=== PATIENT | female | born 1990 | race Caucasian/White ===

== ENCOUNTER 2018-10-21 09:41 | Inpatient (IN) | payer MEDICAID ==
[~2018-10-21] VITALS: Ht 157.5 cm; Wt 63.0 kg
[2018-10-21 11:32] LABS: AMPHETAMINE SCREEN, URINE Negative (Negative); BARBITURATE SCREEN, URINE Negative (Negative); BENZODIAZEPINE SCREEN, URINE Negative (Negative); CANNABINOID SCREEN, URINE Negative (Negative); COCAINE SCREEN, URINE Negative (Negative); METHADONE SCREEN, URINE Negative (Negative); OPIATE SCREEN, URINE Negative (Negative)
[2018-10-21] MEDS ORDERED: LACTATED RINGERS 1,000 ML IV SCH ×2 (11:32→13:25)
[2018-10-21] MEDS ORDERED: OXYTOCIN 30U/ 0.9% NaCL 500ML 500 ML IV ONE (11:32)
[2018-10-21] MEDS ORDERED: FENTANYL PF 100 MCG/2ML IVPush PRN (12:00)
[2018-10-21] MEDS ORDERED: PENICILLIN GK 5,000,000 UNITS in DEXTROSE 5% 100 ML IVPB ONE (12:00)
[2018-10-21] MEDS ORDERED: ONDANSETRON 2MG/ML, 2ML IVPush PRN (12:00)
[2018-10-21] MEDS ORDERED: PLEASE ENTER HEIGHT AND WEIGHT MC SCH (12:00)
[2018-10-21 12:08] LABS: BASOPHILS # (AUTO) 0.03 x10^3/uL (0-0.1); BASOPHILS % (AUTO) 0 % (0-1); EOSINOPHILS # (AUTO) 0.05 x10^3/uL (0-0.4); EOSINOPHILS % (AUTO) 0 % (1-7); LYMPHOCYTES # (AUTO) 3.22 x10^3/uL (1-3.4); LYMPHOCYTES % (AUTO) 27 % (22-44); MD NO; MEAN CORPUSCULAR HEMOGLOBIN 30.5 pg (27.0-34.8); MEAN CORPUSCULAR HGB CONC 33.2 g/dL (32.4-35.8); MEAN PLATELET VOLUME 8.1 fL (7.4-10.4); MONOCYTES # (AUTO) 0.39 x10^3/uL (0.2-0.8); MONOCYTES % (AUTO) 3 % (2-9); NEUTROPHILS # (AUTO) 8.13 x10^3/uL (1.8-6.8); NEUTROPHILS % (AUTO) 69 % (42-75); PLATELET COUNT 267 x10^3/uL (130-400); RED BLOOD COUNT 4.23 x10^6/uL (3.82-5.3); RED CELL DISTRIBUTION WIDTH 15.6 % (9.6-15.2)
[2018-10-21] MEDS ORDERED: FENTANYL PF 100 MCG/2ML ONE (12:13)
[2018-10-21] MEDS ORDERED: FENTANYL/BUPIV./NS/PF 250 ML EPIDCONT SCH ×2 (12:31→13:25)
[2018-10-21] MEDS ORDERED: PREN1TAB60 PO (12:43)
[2018-10-21] MEDS ORDERED: FENTANYL PF 500 MCG, BUPIVACAINE/PF 0.5%, 30ML 62.5 ML in SODIUM CHLORIDE 0.9% 177.5 ML EPIDCONT SCH (13:00)
[2018-10-21] MEDS ORDERED: BUPIVACAINE 0.25% ONE (13:03)
[2018-10-21] MEDS ORDERED: LACTATED RINGERS 1,000 ML IVBOLUS PRN (13:30)
[2018-10-21] MEDS ORDERED: ONDANSETRON 2MG/ML, 2ML ONE (13:32)
[2018-10-21] MEDS ORDERED: NEWBORN KIT ONE (14:39)
[2018-10-21] MEDS ORDERED: PENICILLIN GK 2,500,000 UNITS in DEXTROSE 5% 100 ML IVPB SCH (16:00)
[2018-10-21] MEDS ORDERED: OXYTOCIN 30U/ 0.9% NaCL 500ML 500 ML ONE (16:02)
[2018-10-21] MEDS ORDERED: LIDOCAINE 1%, 20ML ONE (16:04)
[2018-10-21] MEDS ORDERED: MISOPROSTOL 200 MCG TABLET ONE ×3 (16:04→16:05)
[2018-10-21] MEDS: OXYTOCIN 30U/ 0.9% NaCL 500ML 500 ML IV SCH (18:41)
[2018-10-21] MEDS ORDERED: BISACODYL 10 MG SUPP PR PRN (19:00)
[2018-10-21] MEDS ORDERED: ACETAMINOPHEN 325 MG TABLET PO PRN (19:00)
[2018-10-21] MEDS ORDERED: MISOPROSTOL 200 MCG TABLET PO PRN (19:00)
[2018-10-21] MEDS ORDERED: DOCUSATE 100 MG CAPSULE PO PRN (19:00)
[2018-10-21] MEDS ORDERED: IBUPROFEN 800 MG TABLET PO PRN (19:00)
[2018-10-21] MEDS ORDERED: ONDANSETRON 2MG/ML, 2ML IV PRN (19:00)
[2018-10-21] MEDS ORDERED: KETOROLAC 30 MG/1 ML IVPush PRN (19:30)
[2018-10-21] MEDS ORDERED: KETOROLAC 30 MG/1 ML ONE (19:31)
[2018-10-22 00:24] VITALS: BP 103/61
[2018-10-22 04:20] VITALS: BP 110/63
[2018-10-22] MEDS: OXYTOCIN 30U/ 0.9% NaCL 500ML 500 ML IV SCH ×2 (04:41→14:41)
[2018-10-22 06:37] LABS: BASOPHILS # (AUTO) 0.04 x10^3/uL (0-0.1); BASOPHILS % (AUTO) 0 % (0-1); EOSINOPHILS # (AUTO) 0.06 x10^3/uL (0-0.4); EOSINOPHILS % (AUTO) 0 % (1-7); LYMPHOCYTES # (AUTO) 3.33 x10^3/uL (1-3.4); LYMPHOCYTES % (AUTO) 24 % (22-44); MD NO; MEAN CORPUSCULAR HEMOGLOBIN 30.7 pg (27.0-34.8); MEAN CORPUSCULAR HGB CONC 33.6 g/dL (32.4-35.8); MEAN CORPUSCULAR VOLUME 91.4 fL (80-100); MEAN PLATELET VOLUME 8.1 fL (7.4-10.4); MONOCYTES % (AUTO) 5 % (2-9); NEUTROPHILS # (AUTO) 9.81 x10^3/uL (1.8-6.8); NEUTROPHILS % (AUTO) 70 % (42-75); PLATELET COUNT 247 x10^3/uL (130-400); RED CELL DISTRIBUTION WIDTH 15.1 % (9.6-15.2)
[2018-10-22 08:20] VITALS: BP 107/65
[2018-10-22] MEDS ORDERED: PRENATAL VIT/IRON/FA 1 EACH TABLET PO SCH (09:00)
[2018-10-22 12:30] VITALS: BP 108/72
[2018-10-22] MEDS ORDERED: DIPH,PERTUSS(ACELL),TET VAC/PF NC IM-VACC ONE ×2 (16:49→17:00)
== END 2018-10-22 17:07 | disposition home or self-care (01) | DRG 806 ==
LOC: LDOP 09:41 → LDIP 11:42 → 2NE 20:24 → 2NW 20:52
PROVIDERS: ADMIT Obstetrics & Gynecology; ATTEND Obstetrics & Gynecology
PROC: 10E0XZZ Delivery of Products of Conception, External Approach (ICD-10-PCS; principal; 2018-10-21)
PROC: 3E0R3BZ Introduction of Anesthetic Agent into Spinal Canal, Percutaneous Approach (ICD-10-PCS; 2018-10-21)
PROC: 00HU33Z Insertion of Infusion Device into Spinal Canal, Percutaneous Approach (ICD-10-PCS; 2018-10-21)
DX: O24.429 Gestational diabetes mellitus in childbirth, unspecified control (principal); O98.42 Viral hepatitis complicating childbirth; Z37.0 Single live birth; O99.324 Drug use complicating childbirth; B19.20 Unspecified viral hepatitis C without hepatic coma; Z3A.37 37 weeks gestation of pregnancy; F11.10 Opioid abuse, uncomplicated; O99.824 Streptococcus B carrier state complicating childbirth
CPT/HCPCS: 36415; 80307; 82803; 82962; 85025; 86850; 86900; 88307; 89060; 90715; G0378; J1885; J2405; J2540; J3010; J3490; J2590; J7050; J7120; Q0114

== ENCOUNTER 2019-01-20 17:50 | Emergency (ER) | payer MEDICAID ==
[~2019-01-20] VITALS: Ht 160 cm; Wt 55.4 kg
[~2019-01-20 17:50] MED LIST: PREN1TAB60 PO
[2019-01-20] MEDS ORDERED: LIDOCAINE-MPF 1%, 5ML INFIL ONE (18:30)
[2019-01-20] MEDS ORDERED: LIDOCAINE-MPF 1%, 5ML ONE (18:39)
--- NOTE | 2019-01-20 18:44 | NUR ---
PT AMBULATORY TO ROOM 14 W/ C/O R UPPER ARM CYST. PT STATES IT STARTED THURSDAY NIGHT UNKNOWN HOW AND PT WENT TO . PLACED ON ANTX AND CYST GOT WORSE. PT RESTING ON ADELITA. NADN. DE LA PAZ.
[2019-01-20 18:47] LABS: BASOPHILS # (AUTO) 0.03 x10^3/uL (0-0.1); BASOPHILS % (AUTO) 0 % (0-1); EOSINOPHILS # (AUTO) 0.09 x10^3/uL (0-0.4); EOSINOPHILS % (AUTO) 1 % (1-7); LYMPHOCYTES # (AUTO) 1.99 x10^3/uL (1-3.4); LYMPHOCYTES % (AUTO) 19 % (22-44); MD NO; MEAN CORPUSCULAR HEMOGLOBIN 30.4 pg (27.0-34.8); MEAN CORPUSCULAR HGB CONC 34.3 g/dL (32.4-35.8); MEAN CORPUSCULAR VOLUME 88.6 fL (80-100); MEAN PLATELET VOLUME 7.4 fL (7.4-10.4); MONOCYTES # (AUTO) 0.41 x10^3/uL (0.2-0.8); MONOCYTES % (AUTO) 4 % (2-9); NEUTROPHILS # (AUTO) 8.12 x10^3/uL (1.8-6.8); NEUTROPHILS % (AUTO) 76 % (42-75); PLATELET COUNT 273 x10^3/uL (130-400); RED BLOOD COUNT 4.36 x10^6/uL (3.82-5.3)
--- NOTE | 2019-01-20 18:53 | NUR ---
REPORT GIVEN TO BRENDAN MORENO RN.
--- NOTE | 2019-01-20 18:56 | NUR ---
REPORT RECEIVED FROM VIDAL TRAN.
[2019-01-20 18:59] LABS: ANION GAP 7 mmol/L (5-15); CALCIUM 9.3 mg/dL (8.5-10.1); CHLORIDE 106 mmol/L (98-107); CREATININE 0.68 mg/dL (0.55-1.02)
--- NOTE | 2019-01-20 19:35 | NUR ---
PA DID PROCEDURE AT BEDSIDE. PT TOLERATED WELL. AWAITING DC NOW.
[2019-01-20 19:44] VITALS: BP 106/79
== END 2019-01-20 19:46 | disposition home or self-care (01) ==
LOC: ED 19:36
DX: L02.413 Cutaneous abscess of right upper limb (principal); Z86.19 Personal history of other infectious and parasitic diseases
CPT/HCPCS: 10060; 36415; 80048; 85025; 99283

== ENCOUNTER 2019-01-22 12:21 | Emergency (ER) | payer MEDICAID ==
[~2019-01-22] VITALS: Ht 160 cm; Wt 54.0 kg
[2019-01-22 12:24] VITALS: BP 108/66
[2019-01-22] MEDS ORDERED: suboxone PO (12:45)
--- NOTE | 2019-01-22 13:05 | NUR ---
ABCESS LANCED AND DRAINED BY PROVIDER W/ PLACEMENT OF 1/4 PACKING. CLEANSED WITH SALINE, THEN 4/4 THEN KERLIX. EDUCATED ON WOUND CARE
== END 2019-01-22 13:26 | disposition home or self-care (01) ==
LOC: ED 13:00
DX: L02.413 Cutaneous abscess of right upper limb (principal)
CPT/HCPCS: 99283

== ENCOUNTER 2019-01-24 13:15 | Emergency (ER) | payer MEDICAID ==
[~2019-01-24] VITALS: Ht 160 cm; Wt 56.5 kg
[~2019-01-24 13:15] MED LIST changes: +suboxone PO
[2019-01-24 13:23] VITALS: BP 111/71
== END 2019-01-24 13:50 | disposition home or self-care (01) ==
LOC: ED 13:38
DX: L02.413 Cutaneous abscess of right upper limb (principal); F17.200 Nicotine dependence, unspecified, uncomplicated
CPT/HCPCS: 99283

== ENCOUNTER 2020-04-12 11:03 | Emergency (ER) | payer MEDICAID ==
[~2020-04-12] VITALS: Ht 160 cm; Wt 55.4 kg
[~2020-04-12 11:03] MED LIST changes: +subutex
[2020-04-12 11:05] VITALS: BP 126/87
[2020-04-12] MEDS ORDERED: SULFAMETH./TRIMETHOPRIM DS 800MG/160MG TABLET ONE ×2 (11:29→11:35)
[2020-04-12] MEDS ORDERED: LIDOCAINE-MPF 1%, 5ML INFIL ONE (11:30)
[2020-04-12] MEDS ORDERED: SULFAMETH./TRIMETHOPRIM DS 800MG/160MG TABLET PO ONE (11:30)
[2020-04-12] MEDS ORDERED: LIDOCAINE-MPF 1%, 5ML ONE (11:30)
== END 2020-04-12 12:28 | disposition home or self-care (01) ==
LOC: ED 12:14
DX: L02.414 Cutaneous abscess of left upper limb (principal); F11.10 Opioid abuse, uncomplicated; F15.10 Other stimulant abuse, uncomplicated; F17.200 Nicotine dependence, unspecified, uncomplicated
CPT/HCPCS: 10060; 87070; 87077; 87147; 87186; 87205; 99283

== ENCOUNTER 2020-04-15 12:18 | Emergency (ER) | payer MEDICAID ==
[~2020-04-15] VITALS: Ht 160 cm; Wt 53.4 kg
[2020-04-15 12:29] VITALS: BP 115/78
[2020-04-15] MEDS ORDERED: NEOSPORIN OINT. PKT 1 PACKET ONE (14:22)
== END 2020-04-15 14:41 | disposition home or self-care (01) ==
LOC: ED 14:20
DX: L02.414 Cutaneous abscess of left upper limb (principal); Z48.00 Encounter for change or removal of nonsurgical wound dressing
CPT/HCPCS: 99283

== ENCOUNTER 2020-10-20 06:49 | Emergency (ER) | payer MEDICAID ==
[~2020-10-20] VITALS: Ht 160 cm; Wt 59.0 kg
--- NOTE | 2020-10-20 06:56 | NUR ---
PATIENT ARRIVES WITH AN ABCESS TO LEFT WRIST THAT SHE POPPED THIS MORNING, IT'S WARM, PINK, SOME PUS DRAINAGE.
--- NOTE | 2020-10-20 07:05 | NUR ---
PT SEEN BY [facility]. NAD NOTED AT THIS TIME. REDDENED AREA TO LEFT WRIST. NO ADDITIONAL INCISION INDICATED. RN TO APPLY DRESSING. AWAITING FURTHER ORDERS.
[2020-10-20] MEDS ORDERED: CEFAZOLIN 1,000 MG ONE (07:14)
[2020-10-20] MEDS ORDERED: NEOSPORIN OINT. PKT 1 PACKET ONE (07:15)
[2020-10-20] MEDS ORDERED: CEFAZOLIN 1,000 MG IM ONE (07:30)
[2020-10-20 07:46] VITALS: BP 105/57
== END 2020-10-20 07:59 | disposition home or self-care (01) ==
LOC: ED 07:24
DX: L02.414 Cutaneous abscess of left upper limb (principal); L03.114 Cellulitis of left upper limb; F11.10 Opioid abuse, uncomplicated; F17.290 Nicotine dependence, other tobacco product, uncomplicated
CPT/HCPCS: 96372; 99283; J0690

== ENCOUNTER 2021-03-18 14:07 | Emergency (ER) | payer SELFPAY ==
[~2021-03-18] VITALS: Ht 160 cm; Wt 58.2 kg
[2021-03-18 14:23] VITALS: BP 125/80
--- NOTE | 2021-03-18 15:37 | NUR ---
NOTIFIED BY REGISTRATION THAT PT HAS LWBS. UNABLE TO SPEAK WITH PT PT HAS ALREADY LEFT ED.
== END 2021-03-18 15:41 | disposition left against medical advice (07) ==
LOC: ED 14:30
DX: R22.9 Localized swelling, mass and lump, unspecified (principal); Z53.21 Procedure and treatment not carried out due to patient leaving prior to being seen by health care provider